=== PATIENT | male | born 1965 | race Caucasian/White ===

== ENCOUNTER 2018-11-11 12:02 | Emergency (ER) | payer OTHER ==
[~2018-11-11] VITALS: Wt 90.0 kg
--- NOTE | 2018-11-11 12:47 | ERD ---
ER Documentation Chief Complaint Chief Complaint FOUND ALOC AND GIVEN NARCAN. ALERT AND ORIENTED NOW. HX OF OPIATES ABUSE HPI Patient is a 53-year-old male who presents as a heroin overdose. The patient was found by paramedics and was given 2 mg of Narcan which woke him up and improved his breathing. He was given the Narcan 10 minutes prior to arrival. His blood sugar was 138 by paramedics. Upon review of old medical records this is the patient's first visit to the emergency department. The patient says that he took heroin 1 hour ago. He is not suicidal or homicidal. ROS All systems reviewed and are negative except as per history of present illness. PMhx/Soc Medical and Surgical Hx: pt denies Medical Hx FmHx Family History: No diabetes Physical Exam Vitals Vital Signs Date Temp Pulse Resp B/P (MAP) Pulse Ox O2 O2 Flow FiO2 Time Delivery Rate 11/11/18 98.1 77 14 118/77 99 Room Air 13:46 (91) 11/11/18 98.1 88 14 170/78 99 12:18 (108) Physical Exam Const: Somnolent Head: Atraumatic Eyes: Normal Conjunctiva ENT: Normal External Ears, Nose and Mouth. Neck: Full range of motion. No meningismus. Resp: Clear to auscultation bilaterally Cardio: Regular rate and rhythm, no murmurs Abd: Soft, non tender, non distended. Normal bowel sounds Skin: No petechiae or rashes Back: No midline or flank tenderness Ext: No cyanosis, or edema Neur: Awakes to voice or to painful stimuli, is able to answer questions Psych: No suicidal or homicidal ideation Result Diagram: 11/11/18 1231 11/11/18 1231 Results 24 hrs Laboratory Tests Test 11/11/18 12:31 White Blood Count 4.2 10^3/ul Red Blood Count 4.58 10^6/ul Hemoglobin 13.4 g/dl Hematocrit 41.2 % Mean Corpuscular Volume 90.0 fl Mean Corpuscular Hemoglobin 29.3 pg Mean Corpuscular Hemoglobin Concent 32.5 g/dl Red Cell Distribution Width 12.6 % Platelet Count 215 10^3/UL Mean Platelet Volume 9.4 fl Immature Granulocytes % 0.500 % Neutrophils % 57.9 % Lymphocytes % 28.1 % Monocytes % 11.1 % Eosinophils % 1.7 % Basophils % 0.7 % Nucleated Red Blood Cells % 0.0 /100WBC Immature Granulocytes # 0.020 10^3/ul Neutrophils # 2.4 10^3/ul Lymphocytes # 1.2 10^3/ul Monocytes # 0.5 10^3/ul Eosinophils # 0.1 10^3/ul Basophils # 0.0 10^3/ul Nucleated Red Blood Cells # 0.0 10^3/ul Sodium Level 140 mmol/L Potassium Level 3.8 mmol/L Chloride Level 105 mmol/L Carbon Dioxide Level 32 mmol/L Anion Gap 3 Blood Urea Nitrogen 10 mg/dl Creatinine 1.04 mg/dl Est Glomerular Filtrat Rate mL/min > 60 mL/min Glucose Level 111 mg/dl Calcium Level 8.8 mg/dl Total Bilirubin 0.5 mg/dl Direct Bilirubin 0.00 mg/dl Indirect Bilirubin 0.5 mg/dl Aspartate Amino Transf (AST/SGOT) 34 IU/L Alanine Aminotransferase (ALT/SGPT) 37 IU/L Alkaline Phosphatase 63 IU/L Total Protein 7.2 g/dl Albumin 3.9 g/dl Globulin 3.30 g/dl Albumin/Globulin Ratio 1.18 Salicylates Level < 1.0 mg/dl Acetaminophen Level < 10.0 ug/ml Ethyl Alcohol Level < 10.0 mg/dl Procedures/MDM EKG read by me: Rate/Rhythm: Regular rate and rhythm at a rate of 79 Intervals: Normal Impression: No evidence of ischemia or arrhythmia Patient is a 53-year-old male presents with an accidental heroin overdose. Laboratory studies are basically normal. Aspirin, Tylenol, and alcohol levels are negative. EKG is normal. The patient was watched for over 1 hour and had no signs of apnea or hypoxia. The patient will be discharged and should not use drugs in the future. He can return for any worsening symptoms. Departure Diagnosis: Primary Impression: Drug overdose Encounter type: initial encounter Injury intent: accidental or unintentional Qualified Codes: T50.901A - Poisoning by unspecified drugs, medicaments and biological substances, accidental (unintentional), initial encounter Condition: Fair Patient Instructions: Overdose, Accidental (Adult) Referrals: [facility] YOU HAVE RECEIVED A MEDICAL SCREENING EXAM AND THE RESULTS INDICATE THAT YOU DO NOT HAVE A CONDITION THAT REQUIRES URGENT TREATMENT IN THE EMERGENCY DEPARTMENT. FURTHER EVALUATION AND TREATMENT OF YOUR CONDITION CAN WAIT UNTIL YOU ARE SEEN IN YOUR DOCTORS OFFICE WITHIN THE NEXT 1-2 DAYS. IT IS YOUR RESPONSIBILITY TO MAKE AN APPOINTMENT FOR FOLOW-UP CARE. IF YOU HAVE A PRIMARY DOCTOR --you should call your primary doctor and schedule an appointment IF YOU DO NOT HAVE A PRIMARY DOCTOR YOU CAN CALL OUR PHYSICIAN REFERRAL HOTLINE AT IF YOU CAN NOT AFFORD TO SEE A PHYSICIAN YOU CAN CHOSE FROM THE FOLLOWING [facility] [address] [facility] [address] [facility] [facility] [address] [facility] [address] [facility]. [facility] [address] [facility] [address] [facility]. [address] Additional Instructions: Call your primary care doctor TOMORROW for an appointment during the next 1 WEEK .Tell the corporate secretary that you were referred from this facility.See the doctor sooner or return here if your condition worsens before your appointment time. CONY EASTMAN MD Nov 11, 2018 12:47
[2018-11-11 13:46] VITALS: BP 118/77; PULSE 77; RESP 14
== END 2018-11-11 14:03 | disposition home or self-care (01) ==
LOC: E/R 12:02 → EDBD 12:02 → E/R 14:03
DX: T40.1X1A Poisoning by heroin, accidental (unintentional), initial encounter (principal)
CPT/HCPCS: 36415; 80053; 80307; 85025; 93005; Z7502